=== PATIENT | male | born 1955 | race Caucasian/White ===

== ENCOUNTER → 2016-06-02 | Outpatient (CLI) | payer MEDICARE, OTHER ==
[~2016-06-02] MED LIST: AMAN100T PO; AMLODIPINE PO; ATEN50TA PO; AUG875 PO; HALO10TA PO; IBUP-727 PO; IBUP400T22 PO; OMEP20CA9 PO; SIMV5TAB31 PO; TRIH5TAB PO; ZOLP10TA PO
--- NOTE | 2016-06-02 18:14 | RADRPT ---
PROCEDURE: XR left hand. CLINICAL INDICATION: Trauma. Left hand pain. TECHNIQUE: Two views. Frontal and lateral images of the left hand were obtained. COMPARISON: 10/20/2013. FINDINGS: As seen previously, there is amputation of the fifth finger through the proximal phalanx proximally. There is an old healed fracture of the fifth metacarpal. There is no new fracture or dislocation. The soft tissues are normal. Articular surfaces are intact. There is no lytic or blastic lesion. There is no radiopaque foreign body. IMPRESSION: 1. Amputation of the fifth finger through the proximal phalanx proximally. 2. Old healed fracture of the fifth metacarpal. 3. No acute abnormality. RPTAT: QQ .Ashutosh Louis MD, Date Time Electronically viewed and signed by .Ashutosh Louis MD, on 06/02/2016 18:14 .R/
== END | disposition home or self-care (01) ==
LOC: RAD 13:32
PROVIDERS: ATTEND Internal Medicine Rheumatology
DX: S68.117D Complete traumatic metacarpophalangeal amputation of left little finger, subsequent encounter (principal); X58.XXXD Exposure to other specified factors, subsequent encounter
CPT/HCPCS: 73120

== ENCOUNTER 2017-12-01 17:41 | Emergency (ER) | END 2017-12-01 19:30 | disposition home or self-care (01) ==

== ENCOUNTER 2018-01-21 08:07 | Emergency (ER) | END 2018-01-21 09:39 | disposition home or self-care (01) ==

== ENCOUNTER 2018-01-22 01:50 | Emergency (ER) | END 2018-01-22 04:48 | disposition home or self-care (01) ==